=== PATIENT | male | born 1940 | race Caucasian/White ===

== ENCOUNTER 2016-12-08 17:04 | Emergency (ER) | payer MEDICARE, OTHER ==
[2016-12-08] MEDS ORDERED: IBUPROFEN 800 MG TABLET PO STA (17:34)
[2016-12-08] MEDS ORDERED: IBUPROFEN 800 MG TABLET PO ONE (17:40)
[2016-12-08] MEDS ORDERED: levoFLOXacin 250 MG TABLET PO STA (18:54)
[2016-12-08] MEDS ORDERED: levoFLOXacin 250 MG TABLET ONE (19:03)
== END 2016-12-08 19:08 | disposition home or self-care (01) ==
DX: R50.9 Fever, unspecified (principal); J18.9 Pneumonia, unspecified organism; R03.0 Elevated blood-pressure reading, without diagnosis of hypertension
CPT/HCPCS: 71020; 87275; 87276; 99283; A9270

== ENCOUNTER 2017-01-28 10:05 | Outpatient (CLI) | payer MEDICARE, OTHER ==
--- NOTE | 2017-01-28 13:16 | XRAY Report ---
TWO-VIEW CHEST: 01/28/2017 CLINICAL INDICATION: Followup pneumonia. COMPARISON: 12/08/2016 FINDINGS: Frontal and lateral views of the chest demonstrate a normal cardiac silhouette. The lungs are hyperinflated. Patchy right mid lung opacities have resolved. A mass-like region in the lingul a persists, measuring approximately 3 cm. Further evaluation with chest CT is recommended. No effus ion or pneumothorax is seen. IMPRESSION: PERSISTENT MASS-LIKE OPACITY AT THE LEFT LUNG BASE. CHEST CT IS RECOMMENDED FOR FURTHER EVALUATION. INTERVAL CLEARING OF PATCHY RIGHT UPPER LOBE AIR-SPACE DISEASE. JOB #: [id number] EXT JOB #:[id number]
== END 2017-01-28 10:06 | disposition home or self-care (01) ==
LOC: DI 10:05
PROVIDERS: ATTEND Internal Medicine
DX: J18.9 Pneumonia, unspecified organism (principal)
CPT/HCPCS: 71020

== ENCOUNTER 2017-02-08 12:11 | Outpatient (CLI) | payer MEDICARE, OTHER ==
[2017-02-08] MEDS ORDERED: IOPAMIDOL-300 100 ML VIAL IVP ONE (14:54)
--- NOTE | 2017-02-09 10:15 | CT Report ---
CONTRAST ENHANCED CT EXAM OF THE CHEST: 02/08/2017 CLINICAL HISTORY: Nonspecific abnormal finding in the lung ortega. COMPARISON: No comparison CT exam of the chest was done. Recent chest x-ray demonstrated a possible mass in the left lower lung field. This chest x-ray is dated 01/28/2017. Over the course of the patient's chest x-rays between 2016 and 01/30/2017, the area of concern has become smaller. On 12/08/2016, the mass measured 2.9 cm x 3.8 cm. On most recent chest x-ray from 01/28/2017, the mass measured 3.1 cm x 1.9 cm. The mass was not evident on a chest x-ray from 03/10/2017. TECHNIQUE: Patient received 100 mL of Isovue-300 as contrast agent. A CAT scan of the chest was obtained at 5 x 5 mm intervals in axial, coronal and sagittal reconstruction images. In accordance with CT protocol optimization, one or more of the following dose reduction techniques were utilized for this exam: automated exposure control, adjustment of mA and/or KV based on patient size, or use of iterative reconstructive technique. FINDINGS: Mediastinum demonstrates a single small benign-appearing lymph node in the right paratracheal region measuring 0.7 cm x 0.3 cm. Normal cardiac size is noted. Minor vascular calcification is seen in the left anterior descending coronary artery. Lungs demonstrate some minor parenchymal disease in the anterior segment of the right upper lobe. There are three areas of minor parenchymal disease seen in the anterior segment of the right upper lobe. Some mild parenchymal disease is seen in the superior segment of the right lower lobe. Left lung demonstrates a focal comma-shaped mass-like density within the anterior-inferior aspect of the left lower lobe measuring 4.1 cm x 1.8 cm x 3.4 cm. There is also a second smaller mass-like density in the superior segment of the left lower lobe measuring 1.4 cm x 1.0 cm x 1.9 cm. Findings in the lung ortega over the course of the patient's chest x-rays since 12/08/2016 appear improved. This improvement most likely indicates that the parenchymal changes in the lung ortega bilaterally are related to a resolving pneumonia. It can frequently take a significant period of time for pneumonia to completely resolve. Recommend patient be carefully followed with a repeat contrast enhanced chest CT in three months for further evaluation. Liver demonstrates a benign cyst at the junction of the right and left lobe. This cyst measures 2.[address] numbers of 3. There are two tiny additional cysts in the left lobe of the liver, each measuring a few millimeters in diameter. Adrenal glands appear normal. Bones demonstrate anterior spurring in the thoracic and lumbar spine as well as disk space narrowing. Findings are related to osteoarthritis. IMPRESSION: BILATERAL PARENCHYMAL DISEASE IS SEEN IN THE LUNG ORTEGA. FINDINGS ARE MINIMAL IN THE RIGHT LUNG AND MORE PRONOUNCED IN THE LEFT LUNG WITH A FOCAL MASS OR AREA OF CONSOLIDATION WITHIN THE ANTERIOR-INFERIOR ASPECT OF THE LEFT LOWER LOBE MEASURING 1.8 CM X 4.1 CM X 3.4 CM. THERE IS ALSO A 1.4 CM X 1.0 CM X 1.9 CM MASS OR AREA OF CONSOLIDATION IN THE SUPERIOR SEGMENT OF THE LEFT LOWER LOBE. OVERALL, THE FINDINGS IN EACH LUNG ARE IMPROVED OVER THE COURSE OF THE PATIENT'S CHEST X-RAYS SINCE 12/08/2016. THIS IMPROVEMENT MOST LIKELY INDICATES THAT THE FINDINGS ARE DUE TO RESOLVING PNEUMONIA. RECOMMEND A REPEAT NONCONTRAST CT EXAM OF THE CHEST IN THREE MONTHS TO FURTHER CONFIRM THIS BENIGN ETIOLOGY. SEVERAL SMALL BENIGN LIVER CYSTS ARE SEEN. JOB #: [id number] EXT JOB #: [id number] [place]
== END 2017-02-08 12:12 | disposition home or self-care (01) ==
LOC: LAB 12:11
PROVIDERS: ATTEND Internal Medicine
DX: R91.8 Other nonspecific abnormal finding of lung field (principal); J84.89 Other specified interstitial pulmonary diseases
CPT/HCPCS: 36415; 71260; 82565; Q9967

== ENCOUNTER 2017-05-19 10:00 | Outpatient (CLI) | payer MEDICARE, OTHER ==
[2017-05-19] MEDS ORDERED: IOPAMIDOL-300 100 ML VIAL IVP ONE ×3 (10:01→10:44)
[2017-05-19] MEDS ORDERED: IOPAMIDOL-300 100 ML VIAL ONE (10:30)
--- NOTE | 2017-05-19 19:40 | CT Report ---
CONTRAST ENHANCED CHEST CT: 05/19/2017 COMPARISON STUDY: Chest CT 02/08/2017. INDICATION: Follow up left lower lung findings. Possible mass or infiltrate. TECHNIQUE: Axial 5 mm imaging of the chest was performed from the thoracic inlet to the adrenal glan ds. Coronal and sagittal reformats were performed. Intravenous contrast was used, 80 mL Isovue-300. In accordance with CT protocol optimization, one or more of the following dose reduction techniques w ere utilized for this exam: automated exposure control, adjustment of mA and/or KV based on patient size, or use of iterative reconstructive technique. FINDINGS: There is a mass-like density in the left lower lobe. It measures 2.2 x 1.4 cm, previously 2.1 x 3.3 cm, and therefore significantly decreased in size. Previously, it looked like a bilobed m ass, but now the posterior aspect of that is air-space opacity, an improved appearance. Just superio r to that is an area that was previously a mass and now is air-space density axial image 43. Overall, the findings represent a significantly improved appearance. Additional air-space opacities of the right mid lung are much less conspicuous on today's exam, axial image number 30. Hepatic cysts are again noted. No bone lesions are seen. The soft tissues appear grossly unremarkable. IMPRESSION: SIGNIFICANTLY IMPROVED APPEARANCE OF LEFT LOWER LOBE MASS, WITH PREVIOUS BILOBED PORTION OF THE MASS NOW MUCH SMALLER AND PRESENTING GROUND-GLASS OPACITY. SIGNIFICANTLY IMPROVED APPEARANCE OF RIGHT MID LUNG GROUND-GLASS OPACITIES, MUCH LESS CONSPICUOUS. FOLLOWUP IS RECOMMENDED. JOB #: [id number] EXT JOB #:[id number]
== END 2017-05-19 10:01 | disposition home or self-care (01) ==
LOC: LAB 10:00
PROVIDERS: ATTEND Internal Medicine
DX: J18.1 Lobar pneumonia, unspecified organism (principal)
CPT/HCPCS: 36415; 71260; 82565; Q9967

== ENCOUNTER 2017-12-14 07:53 | Outpatient (CLI) | payer MEDICARE, OTHER ==
[2017-12-14] MEDS ORDERED: IOPAMIDOL-300 100 ML VIAL ONE (08:29)
[2017-12-14] MEDS ORDERED: IOPAMIDOL-300 100 ML VIAL IVP ONE (11:00)
--- NOTE | 2017-12-14 11:35 | CT Report ---
CT CHEST WITH CONTRAST: 12/14/2017 CLINICAL INDICATION: Followup left lower lobe nodule and right upper lobe ground glass opacity. TECHNIQUE: Axial CT images of the chest were obtained with 80 mL Isovue 300 intravenously. COMPARISON: 05/19/2017. FINDINGS: The heart and great vessels demonstrate minimal atherosclerotic calcification. No hilar or mediastinal lymphadenopathy is present. The previously noted ground glass opacities have resolved. The parenchymal nodule at the left base has resolved. Minimal linear scarring is now present just superior to where the nodule previously was. Minimal dependent atelectasis is present. No new nodule or mass lesion is present. No effusion or pneumothorax. Osseous structures demonstrate degenerative changes. Limited evaluation of upper abdominal structures demonstrates normal adrenal glands. Cyst in the left lobe of the liver appears stable. IMPRESSION: RESOLUTION OF LEFT LOWER LOBE NODULE AND GROUND GLASS OPACITIES. CT DOSE REDUCTION STATEMENT In accordance with CT protocol optimization, one or more of the following dose reduction techniques were utilized for this exam: automated exposure control, adjustment of mA and/or KV based on patient size, or use of iterative reconstructive technique. TD: 12/14/2017 11:29
== END 2017-12-14 07:54 | disposition home or self-care (01) ==
LOC: LAB 07:53 → DI 07:54
PROVIDERS: ATTEND Internal Medicine
DX: R91.8 Other nonspecific abnormal finding of lung field (principal)
CPT/HCPCS: 36415; 71260; 82565; Q9967

== ENCOUNTER 2018-02-19 09:22 | Outpatient (CLI) | payer MEDICARE, OTHER | END 2018-02-19 09:23 | disposition home or self-care (01) | LOC: DI 09:22 | PROVIDERS: ATTEND Internal Medicine | DX: I48.0 Paroxysmal atrial fibrillation (principal); I08.1 Rheumatic disorders of both mitral and tricuspid valves | CPT/HCPCS: 93306 ==

== ENCOUNTER 2018-09-22 08:31 | Outpatient (CLI) | payer MEDICARE, OTHER ==
[2018-09-22 08:46] LABS: BASOPHILS % (AUTO) 0.7 %; EOSINOPHILS # (AUTO) 0.6 10^3/uL (0.0-0.7); HGB - HEMOGLOBIN 14.9 g/dL (14.0-18.0); LYMPHOCYTES # (AUTO) 1.9 10^3/uL (1.5-3.5); LYMPHOCYTES % (AUTO) 37.8 %; MEAN CORPUSCULAR HEMOGLOBIN 30.7 pg (27.0-31.0); MEAN CORPUSCULAR HGB CONC 33.2 g/dL (32.0-36.0); MEAN CORPUSCULAR VOLUME 92.5 fL (80.0-94.0); MEAN PLATELET VOLUME 8.1 fL (7.4-11.4); MONOCYTES # (AUTO) 0.6 10^3/uL (0.0-1.0); MONOCYTES % (AUTO) 12.6 %; NEUTROPHILS # (AUTO) 1.8 10^3/uL (1.5-6.6); NEUTROPHILS % (AUTO) 36.9 %; PLT - PLATELET COUNT 244 10^3/uL (130-450); RED BLOOD COUNT 4.85 10^6/uL (4.70-6.10); RED CELL DISTRIBUTION WIDTH 14.2 % (12.0-15.0)
== END 2018-09-22 08:32 | disposition home or self-care (01) ==
LOC: LAB 08:31
PROVIDERS: ATTEND Internal Medicine Cardiovascular Disease
DX: I48.91 Unspecified atrial fibrillation (principal)
CPT/HCPCS: 36415; 80048; 85025

== ENCOUNTER 2018-12-01 09:32 | Outpatient (CLI) | payer MEDICARE, OTHER ==
[2018-12-01 09:56] LABS: CALCIUM 9.2 mg/dL (8.5-10.3); CREATININE 1.2 mg/dL (0.6-1.2)
== END 2018-12-01 09:33 | disposition home or self-care (01) ==
LOC: LAB 09:32
PROVIDERS: ATTEND Internal Medicine Cardiovascular Disease
DX: I10 Essential (primary) hypertension (principal)
CPT/HCPCS: 36415; 80048

== ENCOUNTER 2019-03-26 10:43 | Emergency (ER) | payer MEDICARE, OTHER ==
[2019-03-26 11:05] LABS: BASOPHILS % (AUTO) 0.6 %; EOSINOPHILS # (AUTO) 0.3 10^3/uL (0.0-0.7); EOSINOPHILS % (AUTO) 6.6 %; HGB - HEMOGLOBIN 14.4 g/dL (14.0-18.0); LYMPHOCYTES # (AUTO) 1.6 10^3/uL (1.5-3.5); LYMPHOCYTES % (AUTO) 31.5 %; MEAN CORPUSCULAR HEMOGLOBIN 31.2 pg (27.0-31.0); MEAN CORPUSCULAR HGB CONC 33.2 g/dL (32.0-36.0); MEAN CORPUSCULAR VOLUME 94.1 fL (80.0-94.0); MEAN PLATELET VOLUME 9.7 fL (7.4-11.4); MONOCYTES # (AUTO) 0.6 10^3/uL (0.0-1.0); MONOCYTES % (AUTO) 11.6 %; NEUTROPHILS # (AUTO) 2.5 10^3/uL (1.5-6.6); NEUTROPHILS % (AUTO) 49.5 %; PLT - PLATELET COUNT 253 10^3/uL (130-450); RED BLOOD COUNT 4.61 10^6/uL (4.70-6.10); RED CELL DISTRIBUTION WIDTH 13.9 % (12.0-15.0)
[2019-03-26 11:20] LABS: ALBUMIN/GLOBULIN RATIO 1.3 (1.0-2.2); BILIRUBIN,TOTAL 0.8 mg/dL (0.2-1.0); CALCIUM 8.9 mg/dL (8.5-10.3); CREATININE 1.1 mg/dL (0.6-1.2); TOTAL PROTEIN 7.2 g/dL (6.7-8.2)
--- NOTE | 2019-03-26 11:28 | ED Physician Documentation ---
PD HPI CHEST PAIN - Stated complaint Stated Complaint: CHEST PX - Chief complaint Chief Complaint: Cardiac - History obtained from History obtained from: Patient - History of Present Illness Timing - onset: How many hours ago (3), Today Timing - onset during: Light activity (He was just walking around the house this morning about 630 when had onset of chest pressure and heaviness associated with some nausea and dyspnea. He did not feel like his heart rate was going fast. He had been feeling okay the last few days except may be some general fatigue and mild dyspnea with walking upstairs. No chest pain episodes.) Timing - duration: Hours Timing - details: Abrupt onset, Still present (The pressure feeling is lessened since the onset but is still present on arrival to the ER.) Quality: Pressure, Tightness. No: Sharp, Tearing Location: Substernal, Right chest Radiation: No: Jaw, Neck, Back Improved by: No: Rest Worsened by: Exertion (some worse with walking around.). No: Inspiration, Movem ent Associated symptoms: Shortness of air, Feeling faint / dizzy (just not feeling well). No: Vomiting Similar symptoms before: Has not had sx before (He has a history of atrial fibrillation but no coronary disease in the past. His A. fib has been well controlled with medications and he is on Eliquis blood thinner.) Recently seen: Not recently seen Review of Systems Constitutional: denies: Fever, Chills, Myalgias Nose: denies: Rhinorrhea / runny nose, Congestion Throat: denies: Sore throat Cardiac: reports: Chest pain / pressure. denies: Palpitations, Pedal edema, Calf pain Respiratory: reports: Dyspnea. denies: Cough, Wheezing GI: reports: Nausea. denies: Abdominal Pain, Vomiting, Diarrhea : denies: Dysuria, Frequency Musculoskeletal: reports: Extremity swelling Neurologic: denies: Near syncope, Syncope Endocrine: denies: Weight loss PD PAST MEDICAL HISTORY - Past Medical History Past Medical History: Yes Cardiovascular: Hypertension, Atrial fibrillation Respiratory: None Neuro: None Endocrine/Autoimmune: None - Present Medications Home Medications: Ambulatory Orders Medication Instructions Recorded Confirmed Loratadine [Claritin] 10 mg PO DAILY 12/08/16 03/26/19 Metoprolol Tartrate [Lopressor] 50 mg PO ONCE 12/08/16 03/26/19 Apixaban [Eliquis] 5 mg PO BID 03/26/19 03/26/19 Chlorthalidone 12.5 tab PO DAILY 03/26/19 03/26/19 - Allergies Allergies/Adverse Reactions: Allergies Allergy/AdvReac Type Severity Reaction Status Date / Time levofloxacin Allergy Cramps Verified 03/26/19 10:49 - Social History Does the pt smoke?: No Smoking Status: Never smoker Does the pt drink ETOH?: No Does the pt have substance abuse?: No PD ED PE NORMAL - Vitals Vital signs reviewed: Yes - General General: Alert and oriented X 3, No acute distress, Well developed/nourished - HEENT HEENT: Ears normal, Pharynx benign - Neck Neck: Supple, no meningeal sign, No adenopathy - Cardiac Cardiac: RRR, No murmur - Respiratory Respiratory: Clear bilaterally - Abdomen Abdomen: Soft, Non tender - Male Male : Deferred - Rectal Rectal: Deferred - Back Back: No CVA TTP - Derm Derm: Normal color, Warm and dry - Extremities Extremities: No deformity, No tenderness to palpate, No edema, No calf tenderness / cord - Neuro Neuro: Alert and oriented X 3, No motor deficit, Normal speech Results - Vitals Vitals: Vital Signs - 24 hr 03/26/19 03/26/19 03/26/19 10:45 11:00 12:30 Temperature 97.3 C H Heart Rate 76 62 65 Respiratory 18 14 12 Rate Blood Pressure 154/116 H 131/92 H 125/94 H O2 Saturation 100 100 99 03/26/19 03/26/19 03/26/19 13:00 13:30 13:54 Temperature 36.3 C L Heart Rate 63 69 74 Respiratory 16 17 12 Rate Blood Pressure 108/76 132/82 H 108/74 O2 Saturation 97 98 98 03/26/19 14:00 Temperature Heart Rate 56 L Respiratory 12 Rate Blood Pressure 113/79 O2 Saturation 99 Oxygen O2 Source Room air - EKG (time done) 10:48 Rate: Rate (enter#) (66) Rhythm: Atrial fibrillation [place]: Normal QRS: Normal Ischemia: Normal ST segments, T wave inversion (anterolateral leads). No: ST elevation c/w ischemia, ST depression, Q waves - Labs Labs: Laboratory Tests 03/26/19 03/26/19 03/26/19 10:57 10:57 10:57 WBC 5.0 RBC 4.61 L Hgb 14.4 Hct 43.4 MCV 94.1 H MCH 31.2 H MCHC 33.2 RDW 13.9 Plt Count 253 MPV 9.7 Neut # (Auto) 2.5 Lymph # (Auto) 1.6 [place] # (Auto) 0.6 Eos # (Auto) 0.3 Baso # (Auto) 0.0 Absolute Nucleated RBC 0.00 Nucleated RBC % 0.0 Sodium 138 Potassium 3.7 Chloride 97 L Carbon Dioxide 32 Anion Gap 9.0 BUN 24 H Creatinine 1.1 Estimated GFR (MDRD) 65 L Glucose 115 H Calcium 8.9 Magnesium 2.1 Total Bilirubin 0.8 AST 26 ALT 25 Alkaline Phosphatase 48 Troponin I High Sens B-Natriuretic Peptide Total Protein 7.2 Albumin 4.0 Globulin 3.2 Albumin/Globulin Ratio 1.3 Lipase 42 03/26/19 03/26/19 03/26/19 10:57 10:57 12:50 WBC RBC Hgb Hct MCV MCH MCHC RDW Plt Count MPV Neut # (Auto) Lymph # (Auto) [place] # (Auto) Eos # (Auto) Baso # (Auto) Absolute Nucleated RBC Nucleated RBC % Sodium Potassium Chloride Carbon Dioxide Anion Gap BUN Creatinine Estimated GFR (MDRD) Glucose Calcium Magnesium Total Bilirubin AST ALT Alkaline Phosphatase Troponin I High Sens 25.9 H* 139.6 H* B-Natriuretic Peptide 215 H Total Protein Albumin Globulin Albumin/Globulin Ratio Lipase - Rads (name of study) chest xray Radiology: Prelim report reviewed (normal chest xray), EMP read contemporaneously, See rad report PD MEDICAL DECISION MAKING - ED course Complexity details: reviewed results (The initial troponin was just slightly above normal at 26. Repeat 1 2 hours after was 139. Given his symptoms that are suggestive of cardiac cause and no other apparent reason for it, I would assume the increased troponin is related to myocardial injury. I will talk with cardiology and see if he can transfer him for more definitive testing and evaluation.), considered differential, d/w patient, d/w energy consultant (Dr. Jc, Hospitalist, and Dr. Cuevas, Cardiology - Heparin at time of next dose for Eliquis, or to start it if had not had AM dose. ) ED course: The patient's senior sharepoint architect is Dr. Wiggins in [place]. However [facility] does not have any beds available. We will need to seek another facility at this time. Departure - Departure Disposition: 02 Transfer Acute Care Hosp Clinical Impression: Elevated troponin, Non-ST elevated myocardial infarction (non-STEMI) Chest pain Qualifiers: Chest pain type: precordial pain Qualified Code(s): R07.2 - Precordial pain Condition: Stable Record reviewed to determine appropriate education?: Yes
[2019-03-26] MEDS ORDERED: NITROGLYCERIN SL 0.4 MG TABLET SL STA ×2 (11:58→13:46)
--- NOTE | 2019-03-26 12:15 | XRAY Report ---
Reason: CP Procedure Date: 03/26/2019 Accession Number: [id number] / [id number] Procedure: XR - Chest 1 View X-Ray CPT Code: 49841 FULL RESULT: EXAM: CHEST RADIOGRAPHY EXAM DATE: 03/26/2019 11:40 AM. CLINICAL HISTORY: Chest pain. COMPARISON: CHEST 2 VIEW PA/LAT 01/28/2017 10:10 AM CHEST W/ 12/14/2017 9:00 AM CHEST W/ 05/19/2017 10:39 AM. TECHNIQUE: 1 view. FINDINGS: Lungs/Pleura: No focal opacities evident. No pleural effusion. No pneumothorax. Mediastinum: Within exam limitations, the cardiomediastinal contour is normal. Other: None. IMPRESSION: Normal single view chest. RADIA
[2019-03-26] MEDS ORDERED: ATORVASTATIN 40 MG TABLET PO STA (13:46)
[2019-03-26] MEDS ORDERED: ASPIRIN CHEW 81 MG TABLET PO STA (13:46)
[2019-03-26] MEDS ORDERED: MAG HYDROX/AL HYDROX/SIMETH 30 ML UDC PO STA (13:46)
[2019-03-26] MEDS ORDERED: HEPARIN 5,000 UNIT/ML VIAL IVP STA (14:07)
[2019-03-26] MEDS ORDERED: HEPARIN 25000UNITS/500ML (D5W) 25,000 UNIT/500 ML BAG IV STA (14:07)
[2019-03-26 15:57] VITALS: BP 110/67
== END 2019-03-26 15:57 | disposition short-term general hospital (02) ==
LOC: ED 10:43
DX: I21.4 Non-ST elevation (NSTEMI) myocardial infarction (principal); I10 Essential (primary) hypertension
CPT/HCPCS: 36415; 71045; 80053; 83690; 83735; 83880; 84484; 85025; 93005; 96374; 99284; 99285; A9270

== ENCOUNTER 2020-02-12 08:01 | Outpatient (CLI) | payer MEDICARE, OTHER ==
[2020-02-12 08:50] LABS: ALBUMIN 4.1 g/dL (3.2-5.5); ALBUMIN/GLOBULIN RATIO 1.5 (1.0-2.2); ALKALINE PHOSPHATASE 63 IU/L (42-121); ALT ALANINE AMINOTRANSFERASE 22 IU/L (10-60); AST ASPARTATE AMINOTRANSFERASE 27 IU/L (10-42); BILIRUBIN,TOTAL 1.1 mg/dL (0.2-1.0); BUN - BLOOD UREA NITROGEN 24 mg/dL (6-20); CALCIUM 8.7 mg/dL (8.5-10.3); CARBON DIOXIDE - CO2 29 mmol/L (21-32); CHLORIDE 103 mmol/L (101-111); CHOLESTEROL 122 mg/dL; CREATININE 1.1 mg/dL (0.6-1.2); GLUCOSE 109 mg/dL (70-100); HDL CHOLESTEROL 62 mg/dL; LDL CHOLESTEROL,CALCULATED 50 mg/dL; LDL/HDL RATIO 0.8 (<3.6); SODIUM 138 mmol/L (135-145); TOTAL PROTEIN 6.9 g/dL (6.7-8.2); VLDL CHOLESTEROL 10 mg/dL
== END 2020-02-12 08:02 | disposition home or self-care (01) ==
LOC: LAB 08:01
PROVIDERS: ATTEND Internal Medicine Cardiovascular Disease
DX: E78.5 Hyperlipidemia, unspecified (principal)
CPT/HCPCS: 36415; 80053; 80061; 83721

== ENCOUNTER 2020-10-07 08:06 | Outpatient (CLI) | payer MEDICARE, OTHER ==
[2020-10-07 08:50] LABS: ALBUMIN 3.9 g/dL (3.2-5.5); ALBUMIN/GLOBULIN RATIO 1.3 (1.0-2.2); ALKALINE PHOSPHATASE 64 IU/L (42-121); ALT ALANINE AMINOTRANSFERASE 25 IU/L (10-60); AST ASPARTATE AMINOTRANSFERASE 27 IU/L (10-42); BILIRUBIN,TOTAL 0.9 mg/dL (0.2-1.0); BUN - BLOOD UREA NITROGEN 21 mg/dL (6-20); CALCIUM 8.9 mg/dL (8.5-10.3); CARBON DIOXIDE - CO2 27 mmol/L (21-32); CHLORIDE 102 mmol/L (101-111); CHOL/HDL RATIO 2.2 (<5.0); CHOLESTEROL 121 mg/dL; CREATININE 1.1 mg/dL (0.6-1.2); GFR - MDRD 64 (>89); GLUCOSE 106 mg/dL (70-100); HDL CHOLESTEROL 56 mg/dL; LDL CHOLESTEROL,CALCULATED 55 mg/dL; POTASSIUM 4.5 mmol/L (3.5-5.0); SODIUM 139 mmol/L (135-145); TRIGLYCERIDES 48 mg/dL; VLDL CHOLESTEROL 10 mg/dL
== END 2020-10-07 08:07 | disposition home or self-care (01) ==
LOC: LAB 08:06
PROVIDERS: ATTEND Internal Medicine Cardiovascular Disease
DX: E78.5 Hyperlipidemia, unspecified (principal); I48.21 Permanent atrial fibrillation; I10 Essential (primary) hypertension
CPT/HCPCS: 36415; 80053; 80061; 83721; 86900; 86901

== ENCOUNTER 2021-11-15 12:18 | Emergency (ER) | payer MEDICARE, OTHER ==
--- NOTE | 2021-11-15 12:34 | ED Physician Documentation ---
PD HPI HEAD INJURY - Stated complaint Stated Complaint: GLF - Chief complaint Chief Complaint: Trauma Hd/Nk - History obtained from History obtained from: Patient, Family - Additional information Additional information: Mid afternoon yesterday he fell. He was pushing his wood pharmacist per diem up around and his leg gave out and hit his head and face on the wood pharmacist per diem and may be the ground 2. No loss of consciousness. He denies headache. His main complaint is right posterior thigh/hamstring pain. He is on Eliquis. Review of Systems Ten Systems: 10 systems reviewed and negative Constitutional: denies: Fever, Chills Throat: reports: Reviewed and negative Cardiac: reports: Reviewed and negative Respiratory: reports: Reviewed and negative PD PAST MEDICAL HISTORY - Past Medical History Cardiovascular: Hypertension, Atrial fibrillation Respiratory: None Neuro: None Endocrine/Autoimmune: None - Present Medications Home Medications: Ambulatory Orders Medication Instructions Recorded Confirmed Loratadine [Claritin] 10 mg PO DAILY 12/08/16 11/15/21 Apixaban [Eliquis] 5 mg PO BID 03/26/19 11/15/21 Atorvastatin Calcium 40 mg PO HS 11/15/21 11/15/21 Metoprolol Succinate [Toprol Xl] 25 mg PO BID 11/15/21 11/15/21 lisinopriL [Zestril] 5 mg PO BID 11/15/21 11/15/21 - Allergies Allergies/Adverse Reactions: Allergies Allergy/AdvReac Type Severity Reaction Status Date / Time levofloxacin Allergy Cramps Verified 11/15/21 12:23 - Social History Does the pt smoke?: No Smoking Status: Never smoker Does the pt drink ETOH?: No Does the pt have substance abuse?: No PD ED PE NORMAL - Vitals Vital signs reviewed: Yes - General General: Alert and oriented X 3, No acute distress - HEENT HEENT: PERRL, EOMI, Other (Some shallow scrapes on the face and bridge of the nose above the forehead without facial bony tenderness.) - Neck Neck: Supple, no meningeal sign, No bony TTP - Derm Derm: Normal color, Warm and dry, No rash - Extremities Extremities: Other (Some muscular tenderness of the right hamstring with limited range of motion due to pain, does not seem to have bony tenderness per se. He is able to walk with a limp.) - Neuro Neuro: Alert and oriented X 3, Normal speech Eye Opening: Spontaneous Motor: Obeys Commands Verbal: Oriented GCS Score: 15 - Psych Psych: Normal mood, Normal affect Results - Vitals Vitals: Vital Signs - 24 hr 11/15/21 11/15/21 12:24 13:46 Temperature 36.6 C Heart Rate 86 77 Respiratory 18 20 Rate Blood Pressure 138/88 H 136/96 H O2 Saturation 99 100 Oxygen O2 Source Room air PD MEDICAL DECISION MAKING - ED course ED course: CT of the head, cervical spine, and x-ray of the right femur show no evidence of trauma. Incidental findings were discussed with the patient and his . The patient and family were counseled as to the diagnosis and need for follow- up. I counseled the patient with regard to signs and symptoms that would necessitate an urgent reevaluation in the emergency department. They understand they are welcome to return at any time if worse or if not improving as expected. This document was made in part using voice recognition software. While efforts are made to proofread this documents, sound alike and grammatical errors may occur. Departure - Departure Disposition: 01 Home, Self Care Clinical Impression: Adequate anticoagulation on anticoagulant therapy, Fall from ground level Right hamstring muscle strain Qualifiers: Encounter type: initial encounter Qualified Code(s): S76.311A - Strain of muscle, fascia and tendon of the posterior muscle group at thigh level, right thigh, initial encounter Facial abrasion Qualifiers: Encounter type: initial encounter Qualified Code(s): S00.81XA - Abrasion of other part of head, initial encounter Facial contusion Qualifiers: Encounter type: initial encounter Qualified Code(s): S00.83XA - Contusion of other part of head, initial encounter Condition: Stable Record reviewed to determine appropriate education?: Yes Instructions: ED Head Injury Closed Comments: Incidental findings on scanning today showed some sinus disease and degenerative changes in your neck. No evidence of traumatic injury. You do have a strain of your hamstring, you can apply heat and gentle stretching for this. Should get better on its own. Feel free to use Tylenol as needed for the pain. Avoid ibuprofen/naproxen given that you are on the blood thinners. Return if worsening. Follow-up with your doctor early this coming week if not improving. Discharge Date/Time: 11/15/21 13:48
[2021-11-15] MEDS ORDERED: TETANUS/DIPHTHERIA/PERTUSSIS 0.5 ML SYRINGE IM ONE (12:39)
--- NOTE | 2021-11-15 13:29 | CT Report ---
PROCEDURE: CT cervical spine without contrast INDICATIONS: head injury, anticoagulated TECHNIQUE: Noncontrast 3 mm thick sections acquired from the skull base to the T4 level. Sagittal and coronal r eformats were then constructed. For radiation dose reduction, the following was used: automated exp osure control, adjustment of mA and/or kV according to patient size. COMPARISON: None. FINDINGS: Image quality: Excellent. Bones: No fractures or dislocations. Visualized superior ribs are intact. There is degenerative dis c disease with arthropathy and moderate central stenosis at C3 C4-5, C5-6 and C6-7. Facet ankylosis p resent at C2-3 This results in reversal of normal cervical lordosis in the upper cervical spine as we ll as grade 2 anterior spondylolisthesis at C2-3 as well as grade 2 anterior spinal listhesis at C7-T 1. Grade 1 anterior spinal listhesis present at T1-T2. Soft tissues: Prevertebral soft tissues are normal in thickness. No paravertebral hematomas. No ap ical pneumothoraces. IMPRESSION: No evidence of fracture or traumatic malalignment. 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
--- NOTE | 2021-11-15 13:31 | CT Report ---
PROCEDURE: CT brain without contrast INDICATIONS: head injury, anticoagulated TECHNIQUE: Noncontrast 4.5 mm thick angled axial sections acquired from the foramen magnum to the vertex. For r adiation dose reduction, the following was used: automated exposure control, adjustment of mA and/or kV according to patient size. COMPARISON: None. FINDINGS: Image quality: Excellent. CSF spaces: Basal cisterns are patent. No extra-axial fluid collections. Ventricles are normal in size and shape. Brain: No midline shift. No intracranial masses or hemorrhage. [place]-white matter interface is norm al. Moderate atrophy and multifocal white matter chronic ischemic change noted. Atherosclerotic vascular calcification noted in the cavernous segments of both internal carotid arteries as well as the intrad ural vertebral arteries. Skull and face: Calvarium and visualized facial bones are intact, without suspicious lesions. Fronta l scalp soft tissue swelling noted. Sinuses: Bilateral maxillary mucosal thickening greater on the right IMPRESSION: 1. Moderate atrophy and white matter chronic ischemic change without acute hemorrhage or mass effect. 2. Maxillary mucosal sinus disease Reviewed by: Mason Dolan MD on 11/15/2021 12:30 PM AKDT Approved by: Mason Dolan MD on 11/15/2021 12:30 PM AKDT Station ID: [id number]
--- NOTE | 2021-11-15 13:42 | XRAY Report ---
PROCEDURE: Femur 2V RT INDICATIONS: leg injury TECHNIQUE: 2 views of the femur were acquired. COMPARISON: None. FINDINGS: Bones: No fractures or dislocations. No suspicious bony lesions. Moderate joint space narrowing not ed both at the hip and knee Soft tissues: No suspicious soft tissue calcifications or masses. Diffuse atherosclerotic vascular calcification noted. IMPRESSION: No fracture or foreign body Moderate osteoarthritis Reviewed by: Mason Dolan MD on 11/15/2021 12:41 PM AKDT Approved by: Mason Dolan MD on 11/15/2021 12:41 PM AKDT Station ID: [id number]
[2021-11-15 13:47] VITALS: BP 136/96
== END 2021-11-15 13:48 | disposition home or self-care (01) ==
LOC: ED 12:18
DX: S76.311A Strain of muscle, fascia and tendon of the posterior muscle group at thigh level, right thigh, initial encounter (principal); S00.81XA Abrasion of other part of head, initial encounter; S00.83XA Contusion of other part of head, initial encounter; W18.30XA Fall on same level, unspecified, initial encounter; Y93.89 Activity, other specified; Y92.009 Unspecified place in unspecified non-institutional (private) residence as the place of occurrence of the external cause; Z79.01 Long term (current) use of anticoagulants
CPT/HCPCS: 90471; 99282; 99284

== ENCOUNTER 2022-05-18 08:00 | Outpatient (CLI) | payer MEDICARE, OTHER ==
[2022-05-18 08:43] LABS: ALBUMIN 4.1 g/dL (3.2-5.5); ALBUMIN/GLOBULIN RATIO 1.4 (1.0-2.2); ALKALINE PHOSPHATASE 70 IU/L (42-121); ALT ALANINE AMINOTRANSFERASE 32 IU/L (10-60); AST ASPARTATE AMINOTRANSFERASE 31 IU/L (10-42); BILIRUBIN,TOTAL 0.6 mg/dL (0.2-1.0); BUN - BLOOD UREA NITROGEN 25 mg/dL (6-20); CALCIUM 9.1 mg/dL (8.5-10.3); CARBON DIOXIDE - CO2 29 mmol/L (21-32); CHLORIDE 105 mmol/L (101-111); CHOL/HDL RATIO 2.2 (<5.0); CHOLESTEROL 127 mg/dL; GFR - MDRD 72 (>89); GLUCOSE 103 mg/dL (70-100); HDL CHOLESTEROL 58 mg/dL; POTASSIUM 4.6 mmol/L (3.5-5.0); SODIUM 141 mmol/L (135-145); TRIGLYCERIDES 31 mg/dL
== END 2022-05-18 08:01 | disposition home or self-care (01) ==
LOC: LAB 08:00
PROVIDERS: ATTEND Internal Medicine Cardiovascular Disease
DX: E78.5 Hyperlipidemia, unspecified (principal)
CPT/HCPCS: 36415; 80053; 80061; 83721